=== PATIENT | female | born 1995 | race Caucasian/White ===

== ENCOUNTER 2017-11-08 21:26 | Emergency (ER) | payer BC ==
[~2017-11-08] VITALS: Ht 180.3 cm; Wt 74.7 kg
[2017-11-08 21:32] VITALS: BP 143/84
[2017-11-08] MEDS ORDERED: LIDOcaine 1.5% w/epinephrine 1:200,000 5ml ampul IJ ONE (22:15)
[2017-11-08] MEDS ORDERED: AMOX-580 PO (23:00)
== END 2017-11-08 23:30 | disposition home or self-care (01) ==
LOC: ER 21:27
PROC: 0HQGXZZ Repair Left Hand Skin, External Approach (ICD-10-PCS; principal; 2017-11-08)
DX: S61.451A Open bite of right hand, initial encounter (principal); W54.0XXA Bitten by dog, initial encounter; Y93.89 Activity, other specified; Y92.89 Other specified places as the place of occurrence of the external cause; Y99.8 Other external cause status
CPT/HCPCS: 12001; 99283; A6449; J3490